=== PATIENT | male | born 1990 | race Caucasian/White ===

== ENCOUNTER 2019-11-04 11:03 | Day surgery (SDC) | payer SELFPAY, OTHER ==
[2019-10-27 10:04] VITALS: BMI 25.1
--- NOTE | 2019-10-27 11:01 | HP_ITS ---
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 Federico Woods MD) Smoking Status: Never smoker alcohol intake: never HPI HPI HPI: OSMANY GAO, is a 29 M who presents to the office today for HPI HPI Surgical H&P: Yes HPI: OSMANY GAO, is a 29 M who presents to the office today for Right groin pain. The patient has been having right groin pain and swelling for the last 5 weeks. He describes no pain on the opposite side. He does have upset stomach and bloating occasionally. He has been able to reduce the hernia. The pain is only in the right groin and the abdomen. No nausea or vomiting. ROS General General: No weight change, appetite or fatigue HEENT HEENT: No difficulty swallowing, eye injury or eye surgery Endo Endocrine: No thyroid disease or diabetes mellitus Skin Skin: No rash or changing moles Musc Musculoskeletal: No back problems, arthritis or rheumatoid arthritis Cardio Cardiovascular: No murmur, pacemaker, heart disease, atrial fibrillation, high blood pressure, heart attack, heart stent, palpitations, shortness of breat with exertion or chest pain Psych Psychiatric: No depression or anxiety Resp Respiratory: No shortness of breath, No sleep apnea, No cough, No COPD, No asthma, No emphysema, No wheezing Gastro Gastrointestinal: No abdominal pain, No nausea or vomiting, No diarrhea, No constipation, No blood in stool, No acid reflux, No hemorrhoids, No ulcers, No gallbladder problem, No black,tarry stools Additional Details: Right groin pain and swelling Juan Hematologic: No blood thinners, No blood disorders Neuro Neurologic: Yes system reviewed and no additional complaints, except as docu Exam Const General: cooperative Orientation: alert, oriented x3 HENMT Head: normal to inspection Ears: hearing grossly normal bilaterally Eyes General: appearance normal, both eyes and all related structures Visual Barry: normal visual barry by confrontation Neck Neck: normal visual inspection Chest Chest palpation & inspection: normal inspection of the chest Resp Effort & Inspection: normal respiratory effort Auscultation: clear to auscultation bilaterally Cardio Rate: regular rate Rhythm: regular rhythm Heart Sounds: no murmurs GI Inspection: non-distended Palpation: soft, hernia indirect inguinal on the right, nontender Musc Cervical Spine: normal cervical lordosis, cervical ROM normal Skin General: no rashes or lesions noted Neuro General: alert, oriented x3 Cranial Nerves: CN's II-XI intact bilaterally Cognition: normal cognition Extrem General: normal to inspection, full ROM Psych Appearance: grossly normal Affect: normal affect Assessment & Plan Problems 1. Bilateral inguinal hernia without obstruction or gangrene, recurrence not specified K40.20 Plan The patient is having right groin swelling and pain. The patient says that he is normally able to reduce this hernia. He says occasionally will give him abdominal discomfort and fullness but once he reduces the hernia feels better. I recommended robotic assisted laparoscopic inguinal hernia repair with mesh. I discussed hernia repair on the right side and I believe I feel a small defect on the left side as well. I discussed repairing the left side at the same time the patient would like this repaired if there is a hernia present. I discussed robotic assisted laparoscopic inguinal hernia repair with mesh. I also discussed the alternative of open repair with the patient would like laparoscopic repair for fast return to work. I discussed the risks including but not limited to bleeding, infection, injury to spermatic cord, chronic groin pain, bowel injury. Patient understands all the risks and is willing to proceed. Federico Woods MD Pager: [facility] [address] [place] [address], [address] [place] [address] Office: Coding Level of Care Code Off vis,new,level 4 Diagnoses Bilateral inguinal hernia without obstruction or gangrene, recurrence not specified K40.20 ??Obstruction and gangrene presence: without obstruction or gangrene ??Recurrence: not specified as recurrent Time Spent (min) 45 10/27/19 1101 <Electronically signed by Federico keys MD> Date _ Federico Woods MD I have re-examined the patient. There are no clinical changes since date of exam.
[2019-11-04] VITALS (7 sets, daily range): BP systolic 99–137; BP diastolic 56–81; PULSE 67–89; RESP 16; TEMP 36.7–36.9; O2SAT 94–100; BMI 28.4
[2019-11-04] MEDS: Lactated Ringers 1,000 ML 100 ML IV ×3 (11:55→14:49)
[2019-11-04] MEDS: Cefazolin 2 GM in 0.9% Normal Saline 100 ML IV (12:42)
--- NOTE | 2019-11-04 12:45 | LIP_PTH ---
PATIENT: OSMANY GAO LOC: [facility] [place][id number] AGE/SX: 29/M ROOM: RE11/04/[address]: Dr. Federico Woods MD : 1990 BED: DIS: 11/04/2019 SPEC #: [id number] RECD: 11/04/19 16:45 STATUS: BETTE FAREED #: [id number] ALE: 11/04/19 12:[address]: Federico Woods DEPT: SURGICAL PATHOLOGY RECD BY: Jenna Mendoza ENTERED: 11/05/19 08:48 SP TYPE: LIPOMA OTHR DR: Dr. Aung Medellin, DO Tissues: Soft tissues, NOS Procedures: Surgery Specimen Level III HEADER OPERATION: Robotic assisted right inguinal hernia repair with mesh PRE-OP DIAGNOSIS: Right inguinal hernia TISSUE SUBMITTED: Right cord lipoma MICROSCOPIC DIAGNOSIS Right cord lipoma: Mature adipose tissue, consistent with lipoma. SJ:randy 11/06/19 MICROSCOPIC DESCRIPTION Slides are reviewed. GROSS DESCRIPTION Received in fixative is one container labeled with the patient's name and designated right cord lipoma. The specimen consists of a piece of yellow adipose tissue measuring 4 x 1 x 0.5 cm. Sections reveal yellow adipose cut surfaces without area of hemorrhage, necrosis or cystic degeneration. Teacher Associate sections are submitted in one cassette. / SJ:rg 11/05/19 TC:1 CPT: 96532
[2019-11-04] MEDS: Bupivacaine Mpf 0.5% 30 ML VIAL (14:29)
--- NOTE | 2019-11-04 14:47 | PCM.OPRPT ---
Problem List (1) Bilateral inguinal hernia Status: Acute Qualifiers: Obstruction and gangrene presence: without obstruction or gangrene Recurrence: not specified as recurrent Qualified Code(s): K40.20 - Bilateral inguinal hernia, without obstruction or gangrene, not specified as recurrent Report of Operation Date of Procedure: 11/04/19 Pre-Operative Diagnosis: Right inguinal hernia Post-Operative Diagnosis: Bilateral inguinal hernia Surgery/Procedure Performed:: Robotic assisted laparoscopic bilateral inguinal hernia repair with mesh Description of Surgical Findings:: Patient had a right indirect hernia and a left direct hernia Specimen's removed: Right cord lipoma Description of Procedure: Patient was brought back to the operating room and general anesthesia was induced. The abdomen was prepped and draped in usual sterile fashion. An incision was made superior to the umbilicus and Kellys were used to elevate the fascia and a Veress needle was placed into the abdomen. A drop test was performed. The abdomen was then insufflated to 15 mmHg. The needle was removed and the camera port was placed through this incision. The camera was placed into the abdomen. There was no eating or sign of injury to bowel. Next the 8 mm port was placed in the right lateral abdomen as well as an 8 mm port placed in the left mid lateral abdomen. The patient was placed in Trendelenburg position and the robot was docked. The right side was addressed first. It appeared that the patient had a large right indirect hernia and a direct left inguinal hernia. An incision was made in the peritoneum using cautery scissors and deepened to the indirect hernia sac on the right. The hernia sac was reduced and all the adhesions were taken down. Dissection was carried posteriorly. Next a pro-facilities management executive mesh was unfolded in the right inguinal region and placed over the hernia defect. The peritoneum was reapproximated using a running 3-0V lock suture. This completely covered the mesh with peritoneum. The left inguinal region was addressed next. An incision was made in the peritoneum and this was deepened to the direct hernia defect. Dissection was carried in all directions to allow for a large overlap of the mesh. The hernia sac was reduced and a pro-facilities management executive mesh was unfolded and placed into the left inguinal region. The peritoneum was reapproximated using a running 3-0V lock suture. Next the instruments were removed and the ports were removed. The incisions were anesthetized with local anesthetic and closed with interrupted 4-0 Monocryl sutures as well as Steri-Strips and bandages. Testicles were chest to the end the case and both were present in the scrotum. The patient was awoken and taken to PACU in stable condition. The patient tolerated the procedure well. Grafts/Implants Used: Pro-facilities management executive mesh bilaterally - Admit VTE Documentation VTE Mechan Device Prophylaxis: SCD's
--- NOTE | 2019-11-04 14:56 | PCM.DC.HER ---
Discharge Diet: Light diet - advance as tolerated Discharge Activity: Return to Normal Activity, May Not Drive - for 2-3 days or while taking narcotic pain meds., May Shower - with the bandage in place 1-2 days after surgery. Lifting Restrictions: 20 pounds for 6 weeks. Additional Activity Instructions:: Climbing stairs is fine, walking is encouraged. Sitting in bed may be uncomfortable. Sitting up using your lateral muscles (sitting up sideways) is usually more comfortable. Do not drive, work heavy equipment of sign legal documents for 24 hours. If your hernia repair was an ingunial repair, you may have scrotal swelling, an ice pack and/or athletic support can provide more comfort. Pain medications may cause nausea, you should typically eat light foods as you take your pain medications. Pain medications may also cause constipation. If you have difficulty with this, discuss with your doctor. Call your doctor if your incision/area has: Continuous Slow Oozing, Sudden Increased Bleeding, Increased Pain/ Swelling, Increased Redness, Foul Smelling Discharge Call your doctor if you observe: Fever of 101 or Higher Suture Line Care: Avoid Pulling/Pushing, Avoid Pinching/Bending Change Dressing in (Days):: 3 - Leave steri-strips for 1 week. May protect with a guaze bandaid. Cleanse incision/area with: Keep Dressing Clean & Dry Allergies/Adverse Reactions: Allergies No Known Allergies Allergy (Unverified 11/04/19 11:34) Medications to take at Discharge lactobacillus combination no.8 3 billion cell capsule 3,000 mmu cells PO DAILY 10/27/19 [id number] 250 bt-mwnfun-mvuav HCl-herb 124 12.5 mg chewable tablet 250 mg PO DAILY 10/27/19 Oxycodone HCl/Acetaminophen [Percocet 5-325 mg Tablet] 1 - 2 tab PO Q6H PRN 3 Days #10 tablet 11/04/19 The following prescriptions were given: Oxycodone HCl/Acetaminophen [Percocet 5-325 mg Tablet] 1 - 2 tab PO Q6H PRN 3 Days #10 tablet PRN Reason: Pain Score 4-10/10 Transmission Status: Sent to [facility] Test Results: Test results from this visit will be discussed in further detail at your follow-up appointment, if applicable. Please Follow Up With: Federico Woods MD When: Please call to schedule 2 week follow up appointment. [phone]
== END 2019-11-04 17:00 | disposition home or self-care (01) ==
LOC: SDC 11:03 → AC 11:07
PROVIDERS: PCP Family Medicine; Referring Provider Surgery; Visit Provider Surgery
PROC: (CPT 49650; principal; 2019-11-04 12:25)
DX: K40.20 Bilateral inguinal hernia, without obstruction or gangrene, not specified as recurrent (principal); D17.6 Benign lipomatous neoplasm of spermatic cord
CPT/HCPCS: 00840; 49650; S2900; 88304; J7120; J2405